=== PATIENT | male | born 1955 | race Caucasian/White ===

== ENCOUNTER → 2017-06-20 13:15 | Outpatient (POV) | payer BC, SELFPAY | PROVIDERS: Family Provider Internal Medicine Adolescent Medicine; PCP Internal Medicine Adolescent Medicine; Visit Provider Internal Medicine | DX: Z00.00 Encounter for general adult medical examination without abnormal findings (principal) ==

== ENCOUNTER → 2017-06-26 16:44 | Outpatient (CLI) | payer BC, SELFPAY ==
--- NOTE | 2017-06-26 | XR_ITS ---
XR chest 2V HISTORY: Cough, COPD ORDERING PHYSICIAN: Brady Mart MD PATIENT AGE: 61 years COMPARISON: 07/07/2016 FINDINGS: Unremarkable cardiovascular structures. There is hyperinflation with attenuation of the peripheral pulmonary vessels consistent with COPD. No lobar consolidation or collapse. Minimal density noted over the anterior aspect of the right fourth rib which may be due to summation artifact may be confirmed with follow-up. No acute bony anomalies. IMPRESSION: COPD. Faint nodular opacity overlies the right fourth rib anteriorly and could be due to summation artifact, scarring, or even developing nodule. Follow-up radiograph in 4-6 weeks recommended to confirm stability in this patient with COPD. If this persists, CT may be needed for further evaluation.
== END ==
PROVIDERS: PCP Internal Medicine Adolescent Medicine; Visit Provider Internal Medicine Adolescent Medicine
DX: J44.9 Chronic obstructive pulmonary disease, unspecified (principal); J43.1 Panlobular emphysema
CPT/HCPCS: 71046

== ENCOUNTER → 2017-06-27 12:15 | Outpatient (CLI) | payer BC, SELFPAY | PROVIDERS: PCP Internal Medicine Adolescent Medicine; Visit Provider Internal Medicine Adolescent Medicine | DX: J44.9 Chronic obstructive pulmonary disease, unspecified (principal) | CPT/HCPCS: 87070; 87077; 87184; 87205 ==

== ENCOUNTER → 2017-07-10 13:48 | Outpatient (CLI) | payer BC, SELFPAY ==
[2017-07-10 14:12] LABS: Blood Urea Nitrogen 12 mg/dL (7-18); Creatinine,Serum 0.94 mg/dL (0.70-1.30); Estimated Glomerular Filt Rate 82 ml/min (>60); GFR (African American) 99 ML/MIN (>60)
--- NOTE | 2017-07-10 14:18 | CT_ITS ---
CT chest w con Ordering Physician: Brady Mart MD COMPARISON :CT chest 04/23 and 07/11/2013 HISTORY: Lung nodule follow-up Patient Age: 61 years: Male panlobar emphysema, chest wall pain, [place] TECHNIQUE: Helical CT scanning through the chest following 75 cc Isovue-370. Axial Sagittal coronal reconstructions on CT workstation. COMPARISON is made to previous CT chest 07/11/2012 & Previous CT chest from10/17/2016 FINDINGS Again prominent hyperexpansion and pronounced emphysematous changes areobserved. centrilobar emphysema more evident towards the upper lung mckeon.Bleb formation is again most evident about the superior mediastinum and towards apices . The bleb just to the left the mediastinum measuring 3.2 cm diameter withslightly smaller area just to the right of the superior mediastinum. . Borderline/Minor thickening central airways bilaterally. May reflect mild chronic bronchitis feature Right lung. There is a small patchy area of likely inflammatory infiltrate at RUL. No findings in this area on previous October 2016 study,. This located immediate superior to the major fissure at right midlung. Up to 15 mm. It does appear to be a most likely patchy area of low density infiltrate but given its slightly stellate character would suggest a follow-up CT chest in 3-4 months to to exclude more significant process given a slightly radiating character. Again there are no findings here either in retrospect on the previous study The subtle small triangular density RUL axial image 25 is stable or less evident. Most compatible with minor scarring.. Not of concern. Small 3 mm calcified granuloma posterior right lower lobe axial image 51 Stable. Trace linear scarring and atelectasis at the posterior sulcus bilateral2-. Not of concern Mediastinum. No hilar no mediastinal adenopathy or mass. . Great vessels appear satisfactory. Aorta normal caliber. Chest wall unremarkable. Upper abdomen. No significant findings otherwise noted. T-spine. No lesion. No compression fractures mild degenerative changes IMPRESSION . 1. Small patchy area of density midlung at RUL just above major fissure. This small 15 mm low-density area more likely reflecting patchy area inflammatory infiltrate. No previous findings here on previous CT. However would recommend a follow-up CT chest in 3-4 months to further evaluate and confirm stability given its overall appearance. 2. Remainder the chest appears stable since 2017 & [address] chest. No significant new findings. COPD,Hyperexpansion , with prominent emphysematous changes again noted. . 3. No mediastinal mass or adenopathy.
--- NOTE | 2017-07-10 14:25 | HMH.ITSHM ---
JAIDEN,OMI,VAL,INCRUSE,CYMBALTA,CYCLOBENZAPEN,ROPINIROLE
== END ==
PROVIDERS: Family Provider Internal Medicine Adolescent Medicine; PCP Internal Medicine Adolescent Medicine; Visit Provider Internal Medicine Adolescent Medicine
DX: R91.1 Solitary pulmonary nodule (principal)
CPT/HCPCS: 36415; 71260; 82565; 84520; Q9967

== ENCOUNTER 2017-07-14 07:26 | Day surgery (SDC) | payer BC, SELFPAY ==
[2017-07-14] VITALS (18 sets, daily range): BP systolic 73–130; BP diastolic 38–83; PULSE 54–71; RESP 16–18; TEMP 36.4–37; O2SAT 90–98; BMI 32.5
--- NOTE | 2017-07-14 | IR_ITS ---
CARDIAC CATHETERIZATION DATE OF CATHETERIZATION:07/14/2017 12:47 PM PROCEDURES: 1. Right heart catheterization 2. Left heart catheterization 3. Left ventriculogram 4. Selective coronary angiogram INDICATION FOR TEST: 1. Pulmonary hypertension 2. Numerous risk factors for coronary disease 3. Highly abnormal EKG 4. Angina pectoris last 3 and 4 5. Severe COPD Informed consent was obtained prior to the procedure. COMPLICATIONS: None ESTIMATED BLOOD LOSS: Less than 10 ml. TECHNIQUE: One percent lidocaine was used to anesthetize the right anterior aspect of the right wrist. The right radial artery was accessed via the Seldinger technique and a 6 [place] hydrophilic sheath was placed in the right radial artery. Following this one percent lidocaine was used to anesthetize the right anterior aspect of the right neck. The right internal jugular vein was accessed via the Seldinger technique and a 7 [place] sheath was placed in the right internal jugular vein. Following this an arterial cocktail was administered using heparin verapamil and nitroglycerin into the right radial sheath. A trap catheter was used to perform left heart catheterization left ventriculogram and selective coronary angiography while a [place] catheter was used to perform right heart catheterization. Saturations were obtained in the pulmonary artery and right atrium. At the end of the procedure the arterial sheath was removed good hemostasis was achieved using TR banding patient was transferred to the postop holding area in stable condition for venous sheath removal ANGIOGRAPHIC RESULTS: 1. The left main artery normal 2. The left anterior descending artery has proximal mild luminal irregularities 10% stenosis with mid vessel 20% stenoses 3. The circumflex artery is codominant and normal 4. The right coronary artery is codominant and has a proximal concentric 30-40% stenosis with mid vessel 20% stenoses 5. The QUIÑONEZ ventriculogram reveals normal 65% 6. The left ventricular end-diastolic pressure 5 mmHg HEMODYNAMICS: Right atrial pressure is 2 mm Hg. Pulmonary arterial pressure is 17/5 mm Hg. Pulmonary artery occlusion pressure is 5 mm Hg. SATURATIONS: RA is 82 %. PA is 83 %. IMPRESSION: 1. Mild to moderate nonflow limiting coronary artery disease as described above 2. Normal ejection fraction 3. Normal left ventricular end-diastolic pressure 4. Normal intracardiopulmonary filling pressures PLAN: 1. 2.
[2017-07-14 08:02] LABS: Basophils # 0.1 K/mm3 (0-0.2); Basophils % 1.7 % (0.1-2.0); Eosinophils # 0.2 K/mm3 (0.0-0.4); Eosinophils % 3.2 % (0.1-12.0); Hematocrit 47.3 % (42.0-52.0); Hemoglobin 15.5 g/dL (14.1-18.0); Lymphocytes # 2.6 K/mm3 (0.7-4.5); Lymphocytes % 39.8 K/mm3 (10-50); Mean Corpuscular HGB Conc 32.7 g/dL (31.8-35.4); Mean Corpuscular Hemoglobin 33.6 pg (27.0-31.2); Mean Corpuscular Volume 102.5 fl (80-94); Mean Platelet Volume 7.9 fl (7.4-10.4); Monocytes # 0.5 K/mm3 (0.1-1.0); Monocytes % 8.1 % (1.7-9.3); Neutrophils # 3.1 K/mm3 (1.8-7.8); Neutrophils % 47.2 % (37.0-80.0); Platelet Count 207 K/mm3 (142-424); Red Blood Count 4.61 M/mm3 (4.60-6.20); Red Cell Distribution Width 13.6 % (11.5-17.5); White Blood Count 6.5 K/mm3 (4.8-10.8)
[2017-07-14 08:18] LABS: Anion Gap 8.9 mEq/L (5-15); Blood Urea Nitrogen 13 mg/dL (7-18); Carbon Dioxide 31 mmol/L (21.0-32.0); Chloride 103 mmol/L (98-107); Creatinine Clearance Estimated 114 mL/min (0-300); Creatinine,Serum 0.93 mg/dL (0.70-1.30); Estimated Glomerular Filt Rate 83 ml/min (>60); GFR (African American) 101 ML/MIN (>60); Glucose 111 mg/dL (74-106); Sodium 139 mmol/L (136-145)
[2017-07-14 08:19] LABS: Potassium 3.9 mmoL/L (3.5-5.1)
[2017-07-14 14:21] LABS: CATHL Arterial O2 SAT 83 % (90-100); CATHL Venous O2 SAT 82 % (75-80)
== END 2017-07-14 15:49 | disposition home or self-care (01) ==
LOC: CATHLAB 07:27
PROVIDERS: Family Provider Internal Medicine Adolescent Medicine; PCP Internal Medicine Adolescent Medicine; Visit Provider Internal Medicine
DX: R07.9 Chest pain, unspecified; I27.20 Pulmonary hypertension, unspecified; I27.81 Cor pulmonale (chronic); J44.9 Chronic obstructive pulmonary disease, unspecified; I25.2 Old myocardial infarction; Z72.0 Tobacco use; Z79.899 Other long term (current) drug therapy
CPT/HCPCS: 36245; 75625; 75716; 80048; 82810; 85025; 93459; 93460; 99152; C1725; C1769; C1894; J1644; Q9967

== ENCOUNTER → 2017-07-26 17:00 | Outpatient (CLI) | payer BC, SELFPAY | PROVIDERS: Visit Provider Internal Medicine Adolescent Medicine | DX: J44.1 Chronic obstructive pulmonary disease with (acute) exacerbation (principal) | CPT/HCPCS: 87070; 87205 ==

== ENCOUNTER → 2017-10-16 12:56 | Outpatient (CLI) | payer BC, SELFPAY ==
[2017-10-16 14:45] LABS: Blood Urea Nitrogen 15 mg/dL (7-18); Creatinine,Serum 0.92 mg/dL (0.70-1.30); Estimated Glomerular Filt Rate 84 ml/min (>60); GFR (African American) 102 ML/MIN (>60)
== END ==
PROVIDERS: Visit Provider Internal Medicine Adolescent Medicine
DX: R91.1 Solitary pulmonary nodule (principal)
CPT/HCPCS: 36415; 82565; 84520

== ENCOUNTER → 2017-10-18 10:14 | Outpatient (CLI) | payer BC, SELFPAY ==
--- NOTE | 2017-10-18 10:19 | CT_ITS ---
CT chest w con HISTORY: Follow-up lung nodule ITS.REASON: LUNG NODULE ORDERING PHYSICIAN: Brady Mart MD PATIENT AGE: 61 years COMPARISON: 07/10/2017 TECHNIQUE: Axial images obtained following the administration of 75 mL of Isovue 370 . Sagittal, and coronal reformatted images are also generated and reviewed. All CT scans at the facility use one or more dose reduction, viz: automated exposure control; ma/kV adjustment per patient size (including targeted exams where dose is matched to indication; i.e. head); or iterative reconstruction technique. FINDINGS: Centrilobular and paraseptal emphysema once again noted with biapical blebs and scattered bulla. Previously noted patchy area of increased density in the right upper lobe has nearly resolved with only small parenchymal opacity noted at this region and may be due to some minimal postinflammatory fibrotic change. Scattered fibrotic changes are present at 4. No suspicious nodules. No infiltrates or effusions. No mediastinal or hilar mass. No evidence of aortic aneurysm or central pulmonary embolus. Coronary artery calcifications are present. Upper abdominal images are unremarkable. Degenerative changes present in the thoracic and lumbar spine. IMPRESSION: 1. Centrilobular and paraseptal emphysema with scattered bulla. 2. Interval improvement in parenchymal opacification in the right upper lobe 3. Coronary artery disease
== END ==
PROVIDERS: Family Provider Internal Medicine Adolescent Medicine; PCP Internal Medicine Adolescent Medicine; Visit Provider Internal Medicine Adolescent Medicine
DX: R91.1 Solitary pulmonary nodule (principal)
CPT/HCPCS: 71260; Q9967

== ENCOUNTER → 2018-04-12 12:27 | Outpatient (CLI) | payer BC, SELFPAY ==
[2018-04-12 13:40] LABS: Basophils # 0.1 K/mm3 (0-0.2); Eosinophils # 0.3 K/mm3 (0.0-0.4); Hematocrit 48.2 % (42.0-52.0); Hemoglobin 15.3 g/dL (14.1-18.0); Lymphocytes # 2.5 K/mm3 (0.7-4.5); Lymphocytes % 23.1 % (10-50); Mean Corpuscular HGB Conc 31.7 g/dL (31.8-35.4); Mean Platelet Volume 7.7 fl (7.4-10.4); Monocytes # 0.6 K/mm3 (0.1-1.0); Monocytes % 5.6 % (1.7-9.3); Neutrophils # 7.2 K/mm3 (1.8-7.8); Neutrophils % 67.4 % (37.0-80.0); Platelet Count 209 K/mm3 (142-424); Red Blood Count 4.63 M/mm3 (4.60-6.20); Red Cell Distribution Width 13.6 % (11.5-17.5); White Blood Count 10.6 K/mm3 (4.8-10.8)
[2018-04-12 15:30] LABS: Alanine Aminotransferase 20 U/L (12-78); Albumin Level 3.9 gm/dL (3.4-5.0); Albumin/Globulin Ratio 1.2 (1.1-1.8); Alkaline Phosphatase 53 U/L (46-116); Anion Gap 14.6 mEq/L (5-15); Aspartate Amino Transferase 15 U/L (15-37); Bilirubin,Total 0.5 mg/dL (0.2-1.0); Blood Urea Nitrogen 15 mg/dL (7-18); Calcium 9.2 mg/dL (8.5-10.1); Carbon Dioxide 33 mmol/L (21.0-32.0); Chloride 98 mmol/L (98-107); Chol/HDL Ratio 3.4 (1-3.5); Cholesterol 210 mg/dL (140-200); Creatinine,Serum 0.82 mg/dL (0.70-1.30); Estimated Glomerular Filt Rate 96 ml/min (>60); GFR (African American) 116 ML/MIN (>60); Globulin 3.3 gm/dl (1.3-3.2); Glucose 90 mg/dL (74-106); HDL Cholesterol 61 mg/dL (27-67); LDL Cholesterol 133 mg/dL (0-130); Potassium 4.6 mmoL/L (3.5-5.1); Sodium 141 mmol/L (136-145); Thyroid Stimulating Hormone 1.63 uIU/ml (0.358-3.740); Total Protein,Serum 7.2 gm/dL (6.4-8.2); Triglycerides 81 mg/dL (30-200); VLDL Cholesterol 16 mg/dL (0-40)
== END ==
PROVIDERS: Visit Provider Nurse Practitioner Family
DX: I25.10 Atherosclerotic heart disease of native coronary artery without angina pectoris (principal); R00.0 Tachycardia, unspecified; J43.1 Panlobular emphysema
CPT/HCPCS: 36415; 80053; 80061; 84443; 85025

== ENCOUNTER → 2018-06-20 15:35 | Outpatient (CLI) | payer BC, SELFPAY ==
--- NOTE | 2018-06-20 15:41 | XR_ITS ---
XR hip LT 2-3V w/pelvis HISTORY: ITS.REASON: LEFT HIP PAIN, ORDERING PHYSICIAN: Raya Fitzgerald PATIENT AGE: 62 years COMPARISON: None FINDINGS: There are mild osteoarthritic changes of the left hip. No fracture or dislocation. No lytic or blastic change.. An AP view the pelvis also shows mild osteoarthritis of the right hip. Vascular calcifications are present. IMPRESSION: Mild osteoarthritis of the hips
--- NOTE | 2018-06-20 15:41 | XR_ITS ---
EXAM: XR lumbar spine min 4V HISTORY: ITS.REASON: FALL LEFT SIDED LOW BACK PAIN W/SCIATICA ORDERING PHYSICIAN: Raya Fitzgerald PATIENT AGE: 62 years FINDINGS: Minimal lumbar curvature convex right. No fracture or dislocation. There is mild degenerative disc disease in the lower thoracic spine and T12-L1. There slight decrease in height anteriorly at T12 and L1 but does appear to be chronic compared to a prior CT scan. No acute fracture or dislocation. Small endplate osteophytes are present at L3, L4, and L5. There are mild facet arthritic changes at L5-S1. IMPRESSION: Degenerative change, no acute finding. No significant change from 02/22/2008
== END ==
PROVIDERS: PCP Nurse Practitioner Family; Visit Provider Nurse Practitioner Family
DX: M25.552 Pain in left hip (principal); M25.352 Other instability, left hip; M54.42 Lumbago with sciatica, left side; W19.XXXA Unspecified fall, initial encounter
CPT/HCPCS: 72110; 73502

== ENCOUNTER → 2019-04-08 14:43 | Outpatient (CLI) | payer BC, SELFPAY ==
[2019-04-08 15:36] LABS: Basophils # 0.1 K/mm3 (0-0.2); Basophils % 1.3 % (0.1-2.0); Eosinophils # 0.1 K/mm3 (0.0-0.4); Eosinophils % 2.2 % (0.1-12.0); Hematocrit 50.4 % (42.0-52.0); Hemoglobin 17.2 g/dL (14.1-18.0); Lymphocytes # 1.1 K/mm3 (0.7-4.5); Lymphocytes % 21.3 % (10-50); Mean Corpuscular HGB Conc 34.1 g/dL (31.8-35.4); Mean Corpuscular Hemoglobin 33.5 pg (27.0-31.2); Mean Corpuscular Volume 98.2 fl (80-94); Mean Platelet Volume 7.8 fl (7.4-10.4); Monocytes # 0.4 K/mm3 (0.1-1.0); Monocytes % 8.3 % (1.7-9.3); Neutrophils # 3.3 K/mm3 (1.8-7.8); Neutrophils % 66.9 % (37.0-80.0); Platelet Count 216 K/mm3 (142-424); Red Blood Count 5.13 M/mm3 (4.60-6.20); Red Cell Distribution Width 12.4 % (11.5-17.5)
[2019-04-08 16:25] LABS: Alanine Aminotransferase 17 U/L (12-78); Albumin Level 4.1 gm/dL (3.4-5.0); Albumin/Globulin Ratio 1.5 (1.1-1.8); Alkaline Phosphatase 69 U/L (46-116); Anion Gap 13.9 mEq/L (5-15); Aspartate Amino Transferase 26 U/L (15-37); Bilirubin,Total 0.7 mg/dL (0.2-1.0); Blood Urea Nitrogen 10 mg/dL (7-18); Calcium 9.2 mg/dL (8.5-10.1); Carbon Dioxide 29 mmol/L (21.0-32.0); Chloride 86 mmol/L (98-107); Chol/HDL Ratio 2.6 (1-3.5); Cholesterol 194 mg/dL (140-200); Creatinine,Serum 0.83 mg/dL (0.70-1.30); Estimated Glomerular Filt Rate 94 ml/min (>60); GFR (African American) 114 ML/MIN (>60); Globulin 2.7 gm/dl (1.3-3.2); Glucose 102 mg/dL (74-106); HDL Cholesterol 74 mg/dL (27-67); LDL Cholesterol 104 mg/dL (0-130); Potassium 4.9 mmoL/L (3.5-5.1); Sodium 124 mmol/L (136-145); Thyroid Stimulating Hormone 0.66 uIU/ml (0.358-3.740); Total Protein,Serum 6.8 gm/dL (6.4-8.2); Triglycerides 82 mg/dL (30-200); VLDL Cholesterol 16 mg/dL (0-40)
== END ==
PROVIDERS: PCP Nurse Practitioner Family; Visit Provider Nurse Practitioner Family
DX: Z00.00 Encounter for general adult medical examination without abnormal findings (principal); J44.9 Chronic obstructive pulmonary disease, unspecified; E04.1 Nontoxic single thyroid nodule
CPT/HCPCS: 36415; 80053; 80061; 84443; 85025

== ENCOUNTER → 2019-04-12 14:27 | Outpatient (CLI) | payer BC, SELFPAY ==
--- NOTE | 2019-04-12 14:29 | CT_ITS ---
PROCEDURE: CT LUNG SCREENING CLINICAL INDICATION: CURRENT TOBACCO USE Sixty pack-year smoking history, asymptomatic for lung cancer COMPARISON: CHESTW CT chest w con from 10/18/2017 TECHNIQUE: The exam was performed on a GE Light Speed [address] scanner using 2.90 mGy CTDI. A low dose helical CT CHEST was performed on a multi-detector scanner. All CT scans at the facility use one or more dose reduction, viz: automated exposure control, ma/kV adjustment per patient size (including targeted exams where dose is matched to indication, i.e. head), or iterative reconstruction technique. The LDCT was performed in a facility that meets the criteria for the screening program. Data regarding this exam was submitted to ACR which is an approved registry. The order for this exam indicates that it came as a result of a lung cancer screening counseling shard decision-making visit that included all the elements required of such a visit including smoking cessation. The radiologist interpreting this exam meets the CMS criteria for the LDCT lung cancer screening program. The exam is reported using the Lung-RADS classification scale and reported to the ACR registry. NOTE: This study was performed for the specific purposes of lung cancer screening and is not an alternative to diagnostic chest CT. RADIATION DOSE: CTDI vol(CT dose Index-volume) = 2.90mG DLP (Dose Length Product) = 117.24 mGcm FINDINGS: Centrilobular and paraseptal emphysema with scattered areas of scarring. There is a mass in the right middle lobe which measures 3.9 cm AP, 3.7 cm transverse, and 5.2 cm cephalad caudad highly suspicious for neoplasm. This is within the medial aspect of the right middle lobe and is adjacent to the right heart border/right atrium. Subcarinal adenopathy is noted. No definite contralateral adenopathy. Suggest diagnostic CT chest with contrast for further evaluation. Coronary artery calcifications are noted. No other suspicious nodules are apparent. There is some mild thickening of the pericardium inferiorly and there is some mild postobstructive pneumonitis in the right middle lobe inferiorly. IMPRESSION: Lung rads category 4B suspicious Recommend diagnostic CT of the chest with contrast for further evaluation. Mediastinal adenopathy is suspected Suggest pulmonology consult. This lesion should be accessible for biopsy by bronchoscopy. There is mild pericardial thickening and there are coronary artery calcifications suggesting coronary artery disease Dictated by: Eusebio Ledbetter MD 04/13/2019 07:51 Electronically signed by Eusebio Ledbetter MD in [place] 04/19/2019 04:28
== END ==
PROVIDERS: PCP Nurse Practitioner Family; Visit Provider Internal Medicine Adolescent Medicine
DX: Z87.891 Personal history of nicotine dependence (principal); Z12.2 Encounter for screening for malignant neoplasm of respiratory organs

== ENCOUNTER → 2019-05-06 14:36 | Outpatient (CLI) | payer BC, SELFPAY ==
--- NOTE | 2019-05-06 14:41 | XR_ITS ---
PROCEDURE: XR SHOULDER RT MIN 2V CLINICAL INDICATION: RT SHOULDER PAIN COMPARISON: CHESTW CT chest w con from 10/18/2017 FINDINGS: The clavicle is intact and the AC joint appears normal. The humeral head and glenoid are normal and no soft tissue calcifications. IMPRESSION: No acute findings. Dictated by: Dr. Philippe Salgado MD 05/06/2019 15:[address] Philippe Salgado MD in [facility] 05/06/2019 15:52
--- NOTE | 2019-05-06 14:41 | CT_ITS ---
PROCEDURE: CT CHEST W CON CLINICAL HISTORY: ABNORMAL FINDING on low-dose screening chest exam COMPARISON: CHESTW CT chest w con from 10/18/2017 TECHNIQUE: Axial images obtained with sagittal and coronal reformats. All CT scans at the facility use one or more dose reduction, viz: automated exposure control, ma/kV adjustment per patient size (including targeted exams where dose is matched to indication, i.e. head), or iterative reconstruction technique. FINDINGS: The lung mckeon are hyperexpanded with moderate emphysematous changes noted. There is conglomerate somewhat heterogenic appearing mass in the superior mediastinum pretracheal space at the level of the aortic arch measuring 4.2 x 3.2 cm on the axial image by 6.3 cm superior inferior dimension on the coronal sequence and this likely is a conglomeration of abnormal adenopathy. Similar appearing heterogenic density extends into the subcarinal location and likely the same etiology. There is a large somewhat heterogenic appearing mass medial segment of the right middle lobe measuring 4.6 x 10.0 cm on the axial image by 4.9 cm superior inferior dimension on the coronal and sagittal sequence. These findings represent bronchogenic carcinoma until proven otherwise. There is minimal diffuse postobstructive pneumonitis in the lateral segment of the right middle lobe. The remainder of the lung mckeon are clear. There is no pleural fluid. Scans in the upper abdomen show both adrenal IMPRESSION: Large right middle lobe mass with superior mediastinal, right paratracheal and subcarinal conglomerate adenopathy and this is bronchogenic carcinoma until proven otherwise. Dictated by: Dr. Philippe Salgado MD 05/06/2019 16:[address] Philippe Salgado MD in [facility] 05/06/2019 16:02
[2019-05-06 15:19] LABS: Blood Urea Nitrogen 13 mg/dL (7-18); Creatinine,Serum 0.79 mg/dL (0.70-1.30); Estimated Glomerular Filt Rate 100 ml/min (>60); GFR (African American) 121 ML/MIN (>60)
== END ==
PROVIDERS: PCP Internal Medicine Adolescent Medicine; Visit Provider Internal Medicine Adolescent Medicine
DX: R93.89 Abnormal findings on diagnostic imaging of other specified body structures (principal); M25.511 Pain in right shoulder
CPT/HCPCS: 36415; 71260; 73030; 82565; 84520; Q9967

== ENCOUNTER → 2019-05-24 09:58 | Outpatient (CLI) | payer BC, SELFPAY ==
[2019-05-24 10:19] LABS: Blood Urea Nitrogen 24 mg/dL (7-18); Creatinine,Serum 1.05 mg/dL (0.70-1.30); Estimated Glomerular Filt Rate 72 ml/min (>60); GFR (African American) 87 ML/MIN (>60)
--- NOTE | 2019-05-24 10:24 | MR_ITS ---
PROCEDURE: MR HEAD/BRAIN WO/W CON CLINICAL INDICATION: MEDIASTINAL LYMPHADENOPATHY/LUNG MASS Lung mass, lung cancer COMPARISON: No exams were available for comparison TECHNIQUE: Routine multiplanar multi echo sequences are performed without and with gadolinium enhancement. FINDINGS: No midline shift, mass effect, intracranial hemorrhage, or hydrocephalus. There is generalized atrophy with a few scattered T2 white matter hyperintensities nonspecific but may be related to ischemic gliotic foci. The cerebellopontine angles, cerebellum and brainstem have an unremarkable. There are dilated perivascular spaces within the basal ganglia. The no enhancing lesions are evident. The pituitary, corpus callosum, optic chiasm, and craniocervical junction have an unremarkable appearance. Mucosal thickening involves the ethmoid sinuses and there are air-fluid levels in the maxillary sinuses. No mastoid effusion. IMPRESSION: 1. No evidence of intracranial metastasis. 2. No acute intracranial findings. 3. Paranasal sinus disease Dictated by: Eusebio Ledbetter MD 05/25/2019 10:15 Electronically signed by Eusebio Ledbetter MD in [place] 05/25/2019 10:15
== END ==
PROVIDERS: PCP Internal Medicine Adolescent Medicine; Visit Provider Thoracic Surgery (Cardiothoracic Vascular Surgery)
DX: R59.0 Localized enlarged lymph nodes (principal)
CPT/HCPCS: 36415; 70553; 82565; 84520; A9576

== ENCOUNTER → 2019-06-18 08:15 | Outpatient (CLI) | payer BC, SELFPAY ==
--- NOTE | 2019-06-18 08:29 | MR_ITS ---
PROCEDURE: MR LUMBAR SPINE WO/W CON CLINICAL INDICATION: SMALL CELL CARCINOMA, MALIGNANT NEOPLASM OF UNSPECIFIED PART Abnormal PET scan COMPARISON: MR HEAD/BRAIN WO/W CON from 05/24/2019 TECHNIQUE: Routine multiplanar multi echo sequences are performed without and with gadolinium enhancement. FINDINGS: History of small cell carcinoma with abnormal PET scan. The PET scan is not available for review. There is normal alignment. The spinal cord ends at the L2 level. T12-L1: Unremarkable. L1-L2: Unremarkable. L2-L3: There is a round lesion within the mid and superior aspect of the L3 vertebral body measuring 1.6 cm showing slight increase in T2 signal but without obvious enhancement. The margins are somewhat obscured. This is suspicious for metastatic focus. This is confined to the vertebral body. Facet and ligamentum hypertrophic changes are present at that level. L3-L4: Minimal bulging disc with facet ligamentum hypertrophy with mild bilateral lateral recess and foraminal narrowing. There is an ill-defined lesion involving the posterior aspect of the L4 vertebral body on the left and extends into the left pedicle of L4. This is hypointense on T1 becoming slightly hyperintense on T2 without significant enhancement. The lesion measures 2.4 cm AP and 2.2 cm transverse. The the no epidural involvement is suspected. There is mild expansion of the L4 pedicle on the left. L4-5: Degenerative disc disease with bulging disc which is somewhat eccentric toward the left along with facet and ligamentum hypertrophy with left lateral recess and foraminal narrowing. L5-S1: Degenerate disc disease with bulging disc which is also eccentric toward the left with broad-based left foraminal disc protrusion causing some impingement upon the left S1 nerve root and causing moderate narrowing of the left L5-S1 foramen. Incidental note is made of a small right pleural effusion IMPRESSION: 1. Lesions are present involving the L3 and L4 vertebral body as described above. These are consistent with metastatic foci. The L4 lesion involves the left pedicle. 2. L4-5: Degenerative disc disease with bulging disc which is somewhat eccentric toward the left along with facet and ligamentum hypertrophy with left lateral recess and foraminal narrowing. 3. L5-S1: Degenerate disc disease with bulging disc which is also eccentric toward the left with broad-based left foraminal disc protrusion causing some impingement upon the left S1 nerve root and causing moderate narrowing of the left L5-S1 foramen. Dictated by: Eusebio Ledbetter MD 06/19/2019 08:03 Electronically signed by Eusebio Ledbetter MD in [facility] 06/19/2019 08:03
[2019-06-18 08:35] LABS: Blood Urea Nitrogen 16 mg/dL (7-18); Creatinine,Serum 0.88 mg/dL (0.70-1.30); Estimated Glomerular Filt Rate 88 ml/min (>60); GFR (African American) 107 ML/MIN (>60)
== END ==
PROVIDERS: PCP Internal Medicine Adolescent Medicine; Visit Provider Internal Medicine Hematology & Oncology
DX: C34.90 Malignant neoplasm of unspecified part of unspecified bronchus or lung (principal)
CPT/HCPCS: 36415; 72158; 76376; 82565; 84520; A9576

== ENCOUNTER → 2019-06-26 15:38 | Outpatient (CLI) | payer BC, SELFPAY ==
--- NOTE | 2019-06-26 15:44 | XR_ITS ---
PROCEDURE: XR CHEST 2V CLINICAL HISTORY: POSTOBSTRUCTIVE PNEUMONIA COMPARISON: CXR CHEST(2 VIEWS-NOT PORTABLE) from 01/29/2013 CXR CHEST(2 VIEWS-NOT PORTABLE) from 07/07/2016 CXR2V XR chest 2V from 06/26/2017 CT CHEST W CON from 05/06/2019 FINDINGS: The cardiomediastinal silhouette and pulmonary vascularity are within normal limits. There is a moderate amount of new infiltrate in the medial segment of the right middle lobe. Pneumonia should be considered 1st. Follow-up to confirm complete clearing is recommended to ensure benign etiology. Remaining lungs are emphysematous but clear. Blunting of the costophrenic angles may be associated with the hyperinflation. No acute bony abnormalities. IMPRESSION: New moderate right middle lobe infiltrate. Follow-up to complete clearing is recommended to ensure benign etiology. Dictated by: Yusuf Acuna 06/26/2019 17:20 Electronically signed by Yusuf Acuna in [facility] 06/26/2019 17:20
[2019-06-26 16:44] LABS: Basophils % 0.9 % (0.1-2.0); Eosinophils % 0.9 % (0.1-12.0); Hematocrit 42.7 % (42.0-52.0); Hemoglobin 14.5 g/dL (14.1-18.0); Lymphocytes # 0.8 K/mm3 (0.7-4.5); Lymphocytes % 22.1 % (10-50); Mean Corpuscular Hemoglobin 33.1 pg (27.0-31.2); Mean Corpuscular Volume 97.2 fl (80-94); Mean Platelet Volume 7.8 fl (7.4-10.4); Neutrophils # 2.9 K/mm3 (1.8-7.8); Neutrophils % 75.1 % (37.0-80.0); Platelet Count 78 K/mm3 (142-424); Red Blood Count 4.39 M/mm3 (4.60-6.20); Red Cell Distribution Width 13.6 % (11.5-17.5); White Blood Count 3.8 K/mm3 (4.8-10.8)
== END ==
PROVIDERS: PCP Internal Medicine Adolescent Medicine; Visit Provider Internal Medicine Adolescent Medicine
DX: J18.9 Pneumonia, unspecified organism (principal); C34.90 Malignant neoplasm of unspecified part of unspecified bronchus or lung
CPT/HCPCS: 36415; 71046; 85025

== ENCOUNTER → 2019-12-25 12:33 | Outpatient (CLI) | payer BC, SELFPAY ==
--- NOTE | 2019-12-25 13:26 | XR_ITS ---
PROCEDURE: XR CHEST PORTABLE CLINICAL HISTORY: COVID, CHEST WALL PAIN COMPARISON: CR CXR CHEST(2 VIEWS-NOT PORTABLE) from 07/07/2016 CR CXR2V XR chest 2V from 06/26/[address] CHEST W CON from 05/06/2019 CR XR CHEST 2V from 06/26/2019 FINDINGS: The cardiomediastinal silhouette and pulmonary vascularity are within normal limits. The lungs are clear without infiltrates, suspicious nodules, or pleural effusions. There is hyperinflation which could be due to small airway disease such as COPD or bronchitis. Asthma is also consideration. IMPRESSION: Hyperinflation otherwise negative Dictated by: Eusebio Ledbetter MD 12/25/2019 14:21 Eusebio Ledbetter MD in [place] 12/25/2019 14:21
[2019-12-25 13:29] LABS: MANUAL DIFFERENTIAL MANUAL DIFFERENTIAL (MANUAL DIFF)
[2019-12-25 13:36] LABS: Basophils % 0.1 % (0.1-2.0); Eosinophils % 0.3 % (0.1-12.0); Hematocrit 33.6 % (42.0-52.0); Hemoglobin 11.1 g/dL (14.1-18.0); Lymphocytes # 1.4 K/mm3 (0.7-4.5); Lymphocytes % 14.2 % (10-50); Mean Corpuscular HGB Conc 33.1 g/dL (31.8-35.4); Mean Corpuscular Volume 111.9 fl (80-94); Mean Platelet Volume 7.7 fl (7.4-10.4); Monocytes # 0.5 K/mm3 (0.1-1.0); Monocytes % 4.8 % (1.7-9.3); Neutrophils # 7.7 K/mm3 (1.8-7.8); Neutrophils % 80.5 % (37.0-80.0); Platelet Count 142 K/mm3 (142-424); Red Blood Count 3.01 M/mm3 (4.60-6.20); Red Cell Distribution Width 18.7 % (11.5-17.5); White Blood Count 9.5 K/mm3 (4.8-10.8)
[2019-12-25 14:18] LABS: Alanine Aminotransferase 34 U/L (12-78); Albumin Level 4.1 g/dl (3.5-5.0); Alkaline Phosphatase 51 U/L (38-126); Aspartate Amino Transferase 26 U/L (17-59); Bilirubin,Total 0.4 mg/dl (0.2-1.3); Blood Urea Nitrogen 26 mg/dl (9-20); Calcium 9.6 mg/dl (8.4-10.2); Chloride 96 mmol/L (98-107); Estimated Glomerular Filt Rate 68 ml/min (>60); GFR (African American) 82 ML/MIN (>60); Globulin 2.1 g/dL (1.3-3.2); Glucose 125 mg/dl (74-100); Potassium 4.8 mmoL/L (3.5-5.1); Sodium 137 mmol/L (136-145); Total Protein,Serum 6.2 g/dl (6.3-8.2)
[2019-12-25 14:25] LABS: Carbon Dioxide 37 mmol/L (22.0-30.0)
[2019-12-25 14:26] LABS: Anion Gap 8.8 mEq/L (5-15)
[2019-12-25 16:38] LABS: Lymphocytes % 6 % (10-50); Monocytes % 2 % (2-9); Neutrophils % 91 % (42-76); Platelet Estimate Normal; RBC Morphology Normal; Total Cells Counted 100
== END ==
PROVIDERS: Internal Medicine Hematology & Oncology; PCP Internal Medicine Adolescent Medicine; Visit Provider Nurse Practitioner
DX: Z03.818 Encounter for observation for suspected exposure to other biological agents ruled out (principal)
CPT/HCPCS: 36415; 71045; 80053; 85007; 85014; 85018; 85048; 85049; U0003

== ENCOUNTER 2020-02-27 10:59 | Emergency (ER) | payer BC, SELFPAY ==
[2020-02-27 10:59] VITALS: BP 132/83; PULSE 105; RESP 22; TEMP 37.1; O2SAT 94; BMI 17.9
--- NOTE | 2020-02-27 11:14 | XR_ITS ---
PROCEDURE: XR CHEST PORTABLE CLINICAL HISTORY: WEAKNESS COMPARISON: CR CXR2V XR chest 2V from 06/26/[address] CHEST W CON from 05/06/2019 CR XR CHEST 2V from 06/26/2019 CR XR CHEST PORTABLE from 12/25/2019 FINDINGS: The cardiomediastinal silhouette and pulmonary vascularity are within normal limits. Consolidation is present in the right lower lobe and right midlung consistent with pneumonia. There is elevated right hemidiaphragm with small right effusion. Left lung is clear. No acute bony abnormalities. IMPRESSION: Right-sided pneumonia with right pleural effusion. Dictated by: Eusebio Ledbetter MD 02/27/2020 14:14 Eusebio Ledbetter MD in [facility] 02/27/2020 14:14
--- NOTE | 2020-02-27 11:15 | CT_ITS ---
PROCEDURE: CT HEAD/BRAIN WO CON CLINICAL INDICATION: ams Altered mental status, altered level of consciousness, confusion, disorientation COMPARISON: MR MR HEAD/BRAIN WO/W CON from 05/24/2019 TECHNIQUE: Axial images obtained. All CT scans at the facility use one or more dose reduction, viz: automated exposure control, ma/kV adjustment per patient size (including targeted exams where dose is matched to indication, i.e. head), or iterative reconstruction technique. FINDINGS: No midline shift, mass effect, intracranial hemorrhage, hydrocephalus, or extra-axial fluid collection is evident. Suspect an incidental small hemangioma in the calvarium in the right parietal bone. No mastoid effusion. No sinus air-fluid level. IMPRESSION: No acute intracranial finding Dictated by: Eusebio Ledbetter MD 02/27/2020 12:43 Eusebio Ledbetter MD in [facility] 02/27/2020 12:43
[2020-02-27 11:19] VITALS: BP 126/84; PULSE 98; O2SAT 97
[2020-02-27 11:20] LABS: Basophils % 0.3 % (0.1-2.0); Eosinophils % 0.3 % (0.1-12.0); Hematocrit 37.4 % (42.0-52.0); Hemoglobin 11.8 g/dL (14.1-18.0); Lymphocytes # 1.2 K/mm3 (0.7-4.5); Lymphocytes % 9.4 % (10-50); Mean Corpuscular HGB Conc 31.6 g/dL (31.8-35.4); Mean Corpuscular Hemoglobin 33.5 pg (27.0-31.2); Mean Platelet Volume 7.7 fl (7.4-10.4); Monocytes # 0.3 K/mm3 (0.1-1.0); Monocytes % 2.4 % (1.7-9.3); Neutrophils # 10.6 K/mm3 (1.8-7.8); Neutrophils % 87.5 % (37.0-80.0); Platelet Count 330 K/mm3 (142-424); Red Blood Count 3.52 M/mm3 (4.60-6.20); Red Cell Distribution Width 15.2 % (11.5-17.5); White Blood Count 12.2 K/mm3 (4.8-10.8)
--- NOTE | 2020-02-27 11:21 | HMH.EDWEAK ---
ED Disposition Clinical Impression: COPD with exacerbation, Dehydration Right lower lobe pneumonia Qualifiers: Pneumonia type: due to unspecified organism Qualified Code(s): J18.9 - Pneumonia, unspecified organism Disposition: Home, Self-Care Condition on Discharge: Good Instructions: DI for Pneumonia -- Adult Prescriptions: Doxycycline Hyclate [Doxycycline 100mg Capsule] 100 mg PO Q12 10 Days #20 cap Transmission Status: Pending to [facility] Referrals: PCP,No [Non-Staff] - Marcus Quinn MD [Staff Physician] - - Critical Care Critical Care Time: No Attestation: On , the high probability of a clinically significant, sudden or life threatening deterioration of the following system(s) required my full and direct attention, intervention and personal management. The time I documented below is in addition to time spent performing reported procedures but includes the following listed in this critical care notation. Medical Decision Making - Medical Records Medical records reviewed: Yes: I reviewed the patient's medical records. - Cain Inquiry Pt receiving controlled substance: No Vital Signs: 02/27/20 10:59 02/27/20 11:19 02/27/20 12:55 Temperature 98.8 F Temperature Source Oral Pulse Rate [Radial] 105 H 98 H 102 H Respiratory Rate 22 Blood Pressure [Right Arm] 132/83 126/84 138/80 Blood Pressure Mean [Right Arm] 99 98 99 Blood Pressure Source [Right Arm] Automatic Cuff Automatic Cuff Blood Pressure Position [Right Arm] Sitting Sitting Sitting 02 Sat by Pulse Oximetry 94 L 97 92 L Oxygen Delivery Method Nasal Cannula Nasal Cannula Nasal Cannula Oxygen Flow Rate (LPM) 3 3 3 02/27/20 13:00 Temperature Temperature Source Pulse Rate [Radial] 97 H Respiratory Rate 17 Blood Pressure [Right Arm] 138/80 Blood Pressure Mean [Right Arm] 99 Blood Pressure Source [Right Arm] Blood Pressure Position [Right Arm] 02 Sat by Pulse Oximetry 94 L Oxygen Delivery Method Oxygen Flow Rate (LPM) - Lab Data Lab Results 02/27/20 10:45: WBC 12.2 H, RBC 3.52 L, Hgb 11.8 L, Hct 37.4 L, MCV 106.0 H, MCH 33.5 H, MCHC 31.6 L, RDW 15.2, Plt Count 330, MPV 7.7, Neut % (Auto) 87.5 H, Lymph % (Auto) 9.4 L, Coffee % (Auto) 2.4, Eos % (Auto) 0.3, Baso % (Auto) 0.3, Neut # (Auto) 10.6 H, Lymph # (Auto) 1.2, Coffee # (Auto) 0.3, Eos # (Auto) 0.0, Baso # (Auto) 0.0, Total Counted 100, Neutrophils % (Manual) 84 H, Lymphocytes % (Manual) 15, Monocytes % (Manual) 1 L, Platelet Estimate Normal, Anisocytosis 1+, Macrocytosis 1+ 02/27/20 10:45: Sodium 137, Potassium 4.6, Chloride 98, Carbon Dioxide 34 H, Anion Gap 9.6, BUN 11, Creatinine 0.80, Estimated Creat Clear 63, Estimated GFR 98, Est GFR ( Amer) 119, Glucose 128 H, Calcium 9.1, Total Bilirubin 0.4, AST 42, ALT 22, Alkaline Phosphatase 77, Total Protein 6.6, Albumin 3.6, Globulin 3.0, Albumin/Globulin Ratio 1.2 02/27/20 11:22: Specimen Source Left radial, O2 % 28%, ABG pH 7.38, ABG pCO2 49.0 H, ABG pO2 69.5 L, ABG HCO3 28.3 H, ABG Total CO2 29.8 H, ABG O2 Saturation 93, ABG Base Excess 3.1 H, Eusebio Test Acceptable 02/27/20 12:55: Urine Color [place], Urine Appearance Sl cloudy, Urine pH 5.0, Ur Specific [place] >= 1.030, Urine Protein Trace, Urine Glucose (UA) Negative, Urine Ketones 2+, Urine Blood Negative, Urine Nitrate Positive, Urine Bilirubin 1+ A, Urine Urobilinogen 1.0, Ur Leukocyte Esterase Negative, Urine RBC 5-10, Urine WBC 3-5, Ur Squamous Epith Cells 3-5, Urine Bacteria 1+ Result diagrams: 02/27/20 10:45 02/27/20 10:45 Orders (Tests/Meds): ED MEDICATIONS Generic Name Dose Route Start Last Admin Trade Name Freq PRN Reason Stop Dose Admin Albuterol/Ipratropium 3 ml 02/27/20 13:23 Albuterol/Ipratropium 3 Ml Neb IH 02/27/20 13:24 ONCE ONE Discontinued Medications Generic Name Dose Route Start Last Admin Trade Name Freq PRN Reason Stop Dose Admin Sodium Chloride 1,000 mls @ 999 mls/hr 02/27/20 11:15 02/27/20 11:28 Sod
[2020-02-27 11:23] LABS: MANUAL DIFFERENTIAL MANUAL DIFFERENTIAL (MANUAL DIFF)
[2020-02-27 11:24] LABS: Alanine Aminotransferase 22 U/L (12-78); Albumin Level 3.6 g/dl (3.5-5.0); Albumin/Globulin Ratio 1.2 (1.1-1.8); Alkaline Phosphatase 77 U/L (38-126); Anion Gap 9.6 mEq/L (5-15); Aspartate Amino Transferase 42 U/L (17-59); Bilirubin,Total 0.4 mg/dl (0.2-1.3); Blood Urea Nitrogen 11 mg/dl (9-20); Calcium 9.1 mg/dl (8.4-10.2); Carbon Dioxide 34 mmol/L (22.0-30.0); Chloride 98 mmol/L (98-107); Creatinine Clearance Estimated 63 mL/min (50-200); Estimated Glomerular Filt Rate 98 ml/min (>60); GFR (African American) 119 ML/MIN (>60); Glucose 128 mg/dl (74-100); Potassium 4.6 mmoL/L (3.5-5.1); Sodium 137 mmol/L (136-145); Total Protein,Serum 6.6 g/dl (6.3-8.2)
--- NOTE | 2020-02-27 11:31 | ECG_ITS ---
APPROVED REPORT Exam: Resting ECG HR:91 bpm ECG Measurements Heart Rate 91 AXES MS 144 P 73 QRSd 80 QRS 116 QT 380 T 74 QTc 467 Conclusion Normal sinus rhythm Bi atrial abnormality Right axis deviation Abnormal ECG Electronically signed by : Brady Mart, 02/28/2020 14:34:07
[2020-02-27 11:33] LABS: Anisocytosis 1+; Lymphocytes % 15 % (10-50); Macrocytosis 1+; Monocytes % 1 % (2-9); Neutrophils % 84 % (42-76); Platelet Estimate Normal; Total Cells Counted 100
--- NOTE | 2020-02-27 12:01 | PC.NURSE ---
Pt to rad
[2020-02-27 12:46] LABS: ABG Base Excess 3.1 mmol/L (-2.4-2.3); ABG HCO3 28.3 mmhg (22.0-26.0); ABG Oxygen Saturation 93 % (90-100); ABG PH 7.38 mmol/L (7.35-7.45); ABG PO2 69.5 mmhg (80-100); ABG TCO2 29.8 mmhg (23-27)
[2020-02-27 12:47] LABS: Allen's Test Acceptable; Oxygen 28% %; Source Left Radial
[2020-02-27 12:55] VITALS: BP 138/80; PULSE 102; O2SAT 92
[2020-02-27 12:59] LABS: Microscopic, Urine URINE MICROSCOPIC (MICROSCOPIC)
[2020-02-27 13:00] VITALS: BP 138/80; PULSE 97; RESP 17; O2SAT 94
[2020-02-27 13:07] LABS: Appearance,Urine SL CLOUDY (Clear); Blood, Urine Negative (Negative); Color,Urine ORANGE (Yellow); Glucose,Urine (UA) Negative (Negative); Ketones,Urine 2+ (Negative); Leukocyte Esterase,Urine Negative (Negative); Nitrate,Urine POSITIVE (Negative); Protein,Urine TRACE (Negative); Specific Gravity, Urine >= 1.030 (1.005-1.030)
[2020-02-27 13:10] LABS: Bilirubin,Urine 1+ (Negative)
[2020-02-27 13:18] LABS: Bacteria,Urine 1+ /lpf
[2020-02-27 13:34] VITALS: BP 134/80; PULSE 95; O2SAT 94
--- NOTE | 2020-02-27 14:00 | PC.NURSE ---
SKIN TEARS TO RT AND LT ELBOW CLEANED AND PSO DSD APPLIED
[2020-02-27 14:32] VITALS: BP 132/74; PULSE 98; RESP 22; TEMP 36.6; O2SAT 95
== END 2020-02-27 14:35 | disposition home or self-care (01) ==
PROVIDERS: Emergency Provider Emergency Medicine; PCP Internal Medicine Adolescent Medicine
DX: J44.1 Chronic obstructive pulmonary disease with (acute) exacerbation (principal); E86.0 Dehydration; J18.9 Pneumonia, unspecified organism; C34.90 Malignant neoplasm of unspecified part of unspecified bronchus or lung; Z79.899 Other long term (current) drug therapy
CPT/HCPCS: 70450; 71045; 80053; 81001; 82803; 85007; 85025; 93005; 96365; 99284

== ENCOUNTER 2020-04-19 12:06 | Emergency (ER) | payer BC, SELFPAY ==
[2020-04-19] VITALS (7 sets, daily range): BP systolic 107–151; BP diastolic 78–91; PULSE 108–117; RESP 18; TEMP 36.6; O2SAT 92–96; BMI 19.5
--- NOTE | 2020-04-19 12:08 | HMH.EDGENADL ---
ED Disposition Clinical Impression: Lung cancer Qualifiers: Laterality: right Lung location: unspecified part of lung Qualified Code(s): C34.91 - Malignant neoplasm of unspecified part of right bronchus or lung Disposition: Home Health Service Condition on Discharge: Fair Additional Instructions: Continue medications as prescribed. Hospice should be reaching out to you after 8 AM tomorrow morning to schedule a home visit to coordinate medical home. If any issues or concerns prior to that time please have patient brought back to the emergency department. Referrals: Brady Mart MD [Primary Care Provider] - - Critical Care Critical Care Time: No Attestation: On , the high probability of a clinically significant, sudden or life threatening deterioration of the following system(s) required my full and direct attention, intervention and personal management. The time I documented below is in addition to time spent performing reported procedures but includes the following listed in this critical care notation. Medical Decision Making - Medical Records Medical records reviewed: Yes: I reviewed the patient's medical records. - Cain Inquiry Pt receiving controlled substance: No Vital Signs: 04/19/20 12:06 04/19/20 13:49 04/19/20 14:42 Temperature 97.9 F Temperature Source Oral Pulse Rate [Right Radial] 117 H 110 H 114 H Respiratory Rate 18 Blood Pressure [Right Arm] 117/81 151/83 H 136/78 Blood Pressure Mean [Right Arm] 93 105 97 Blood Pressure Source [Right Arm] Automatic Cuff Automatic Cuff Automatic Cuff Blood Pressure Position [Right Arm] Sitting Sitting Sitting 02 Sat by Pulse Oximetry 92 L 96 93 L Oxygen Delivery Method Nasal Cannula Nasal Cannula Oxygen Flow Rate (LPM) 2 2 04/19/20 15:56 Temperature Temperature Source Pulse Rate [Right Radial] 108 H Respiratory Rate Blood Pressure [Right Arm] 146/91 H Blood Pressure Mean [Right Arm] 109 Blood Pressure Source [Right Arm] Automatic Cuff Blood Pressure Position [Right Arm] Sitting 02 Sat by Pulse Oximetry 94 L Oxygen Delivery Method Nasal Cannula Oxygen Flow Rate (LPM) 3 - Lab Data Lab Results 04/19/20 12:10: WBC 13.3 H, RBC 3.66 L, Hgb 11.8 L, Hct 36.1 L, MCV 98.7 H, MCH 32.3 H, MCHC 32.7, RDW 15.3, Plt Count 295, MPV 7.5, Neut % (Auto) 85.7 H, Lymph % (Auto) 8.3 L, [place] % (Auto) 5.8, Eos % (Auto) 0.1, Baso % (Auto) 0.1, Neut # (Auto) 11.4 H, Lymph # (Auto) 1.1, [place] # (Auto) 0.8, Eos # (Auto) 0.0, Baso # (Auto) 0.0, Total Counted 100, Neutrophils % (Manual) 90 H, Lymphocytes % (Manual) 6 L, Monocytes % (Manual) 4, Platelet Estimate Normal, RBC Morphology Normal 04/19/20 12:10: Sodium 132 L, Potassium 4.9, Chloride 96 L, Carbon Dioxide 30, Anion Gap 10.9, BUN 23 H, Creatinine 1.10, Estimated Creat Clear 63, Estimated GFR 68, Est GFR ( Amer) 82, Glucose 130 H, Calcium 9.4, Total Bilirubin 0.6, AST 58, ALT 27, Alkaline Phosphatase 80, Troponin I 0.02, Total Protein 6.6, Albumin 3.7, Globulin 2.9, Albumin/Globulin Ratio 1.3 04/19/20 12:10: Lactate 1.8 04/19/20 12:10: SARS-CoV-2 IgG Ab (Rapid) Negative, SARS-CoV-2 IgM Ab (Rapid) Negative 04/19/20 13:15: Urine Color Yellow, Urine Appearance Clear, Urine pH 5.5, Ur Specific [place] 1.025, Urine Protein Negative, Urine Glucose (UA) Negative, Urine Ketones 1+, Urine Blood 1+, Urine Nitrate Negative, Urine Bilirubin Negative, Urine Urobilinogen 0.2, Ur Leukocyte Esterase Negative, Urine RBC 3-5, Urine WBC Occasional, Ur Squamous Epith Cells 5-10, Urine Bacteria None Result diagrams: 04/19/20 12:10 04/19/20 12:10 Orders (Tests/Meds): ED MEDICATIONS Discontinued Medications Generic Name Dose Route Start Last Admin Trade Name Freq PRN Reason Stop Dose Admin Albuterol/Ipratropium 3 ml 04/19/20 15:50 Albuterol/Ipratropium 3 Ml Neb IH 04/19/20 15:51 ONCE ONE Lactated Ringer's 1,000 mls @ 999 mls/hr 04/19/20 12:45 04/19/20 13:45 Lactated Ringer's 1000 Ml Bag IV 04/19/
[2020-04-19 12:25] LABS: Basophils % 0.1 % (0.1-2.0); Eosinophils % 0.1 % (0.1-12.0); Hematocrit 36.1 % (42.0-52.0); Hemoglobin 11.8 g/dL (14.1-18.0); Lymphocytes # 1.1 K/mm3 (0.7-4.5); Lymphocytes % 8.3 % (10-50); Mean Corpuscular HGB Conc 32.7 g/dL (31.8-35.4); Mean Corpuscular Hemoglobin 32.3 pg (27.0-31.2); Mean Corpuscular Volume 98.7 fl (80-94); Mean Platelet Volume 7.5 fl (7.4-10.4); Monocytes # 0.8 K/mm3 (0.1-1.0); Monocytes % 5.8 % (1.7-9.3); Neutrophils # 11.4 K/mm3 (1.8-7.8); Neutrophils % 85.7 % (37.0-80.0); Platelet Count 295 K/mm3 (142-424); Red Blood Count 3.66 M/mm3 (4.60-6.20); Red Cell Distribution Width 15.3 % (11.5-17.5); White Blood Count 13.3 K/mm3 (4.8-10.8)
[2020-04-19 12:29] LABS: MANUAL DIFFERENTIAL MANUAL DIFFERENTIAL (MANUAL DIFF)
--- NOTE | 2020-04-19 12:30 | CT_ITS ---
PROCEDURE: CT HEAD/BRAIN WO CON CLINICAL INDICATION: fall, ams COMPARISON: No exams were available for comparison TECHNIQUE: Axial images obtained. All CT scans at the facility use one or more dose reduction, viz: automated exposure control, ma/kV adjustment per patient size (including targeted exams where dose is matched to indication, i.e. head), or iterative reconstruction technique. FINDINGS: No midline shift, mass effect, intracranial hemorrhage, hydrocephalus, or extra-axial fluid collection is evident. The cortical sulci are mildly prominent but normal for age.45 The calvarium has an unremarkable appearance. No mastoid effusion. No sinus air-fluid level. IMPRESSION: No acute intracranial finding Dictated by: Dr. Philippe Salgado MD 04/19/2020 13:14 Dr. Philippe Salgado MD in [facility] 04/19/2020 13:14
--- NOTE | 2020-04-19 12:30 | PC.NURSE ---
ER MD states CT head with and without contrast radiology states waiting on labs for contrast.
[2020-04-19 12:32] LABS: Chloride 96 mmol/L (98-107); Potassium 4.9 mmoL/L (3.5-5.1); Sodium 132 mmol/L (136-145)
--- NOTE | 2020-04-19 12:32 | PC.NURSE ---
BALA CARBAJAL speaking with pts at this time
[2020-04-19 12:34] LABS: Alanine Aminotransferase 27 U/L (12-78); Aspartate Amino Transferase 58 U/L (17-59); Blood Urea Nitrogen 23 mg/dl (9-20); Creatinine Clearance Estimated 63 mL/min (50-200); Estimated Glomerular Filt Rate 68 ml/min (>60); GFR (African American) 82 ML/MIN (>60)
[2020-04-19 12:35] LABS: Albumin Level 3.7 g/dl (3.5-5.0); Albumin/Globulin Ratio 1.3 (1.1-1.8); Alkaline Phosphatase 80 U/L (38-126); Anion Gap 10.9 mEq/L (5-15); Bilirubin,Total 0.6 mg/dl (0.2-1.3); Calcium 9.4 mg/dl (8.4-10.2); Carbon Dioxide 30 mmol/L (22.0-30.0); Globulin 2.9 g/dL (1.3-3.2); Glucose 130 mg/dl (74-100); Lactic Acid 1.8 mmol/L (0.7-2.1); Total Protein,Serum 6.6 g/dl (6.3-8.2)
[2020-04-19 12:38] LABS: Lymphocytes % 6 % (10-50); Monocytes % 4 % (2-9); Neutrophils % 90 % (42-76); Platelet Estimate Normal; RBC Morphology Normal; Total Cells Counted 100
--- NOTE | 2020-04-19 12:38 | PC.NURSE ---
pt to CT
[2020-04-19 12:47] LABS: Troponin I 0.02 ng/ml (0.00-0.034)
--- NOTE | 2020-04-19 13:06 | PC.NURSE ---
pt return from CT
[2020-04-19 13:22] LABS: Coronavirus 19 IgG Antibody Negative (Negative); Coronavirus 19 IgM Antibody Negative (Negative)
[2020-04-19 13:25] LABS: Microscopic, Urine URINE MICROSCOPIC (MICROSCOPIC)
[2020-04-19 13:26] LABS: Appearance,Urine CLEAR (Clear); Blood, Urine 1+ (Negative); Color,Urine YELLOW (Yellow); Glucose,Urine (UA) Negative (Negative); Ketones,Urine 1+ (Negative); Leukocyte Esterase,Urine Negative (Negative); Nitrate,Urine Negative (Negative); PH,Urine 5.5 (5.0-8.5); Protein,Urine Negative (Negative); Specific Gravity, Urine 1.025 (1.005-1.030); Urobilinogen,Urine 0.2 EU/dl (0.2)
[2020-04-19 13:31] LABS: Bilirubin,Urine Negative (Negative)
[2020-04-19 13:33] LABS: WBC,Urine Occasional #/hpf (0-3)
--- NOTE | 2020-04-19 13:48 | XR_ITS ---
PROCEDURE: XR CHEST PORTABLE CLINICAL HISTORY: altered mental status COMPARISON: CT CT CHEST W CON from 05/06/2019 CR XR CHEST 2V from 06/26/2019 CR XR CHEST PORTABLE from 12/25/2019 CR XR CHEST PORTABLE from 02/27/2020 FINDINGS: Severe far advanced emphysematous changes are noted with marked hyperexpansion lung mckeon and depression of the hemidiaphragms. The right lower lobe infiltrate seen on the previous chest film 02/27/2020 has resolved however there now is ill-defined pneumonic infiltrate right perihilar region and right upper lobe. There is a small right pleural effusion. The left lung field remains clear. Cardiac size is normal. IMPRESSION: Marked COPD with right perihilar and right upper lobe bronchopneumonia with small right pleural effusion Dictated by: Dr. Philippe Salgado MD 04/19/2020 15:07 Dr. Philippe Salgado MD in [facility] 04/19/2020 15:07
--- NOTE | 2020-04-19 15:57 | PC.NURSE ---
Attempted to contacted [phone] per hospice to get intake demographic for pt for hospice. Forward to voicemail at this time.
[2020-04-19 16:06] LABS: Troponin I 0.02 ng/ml (0.00-0.034)
--- NOTE | 2020-04-19 17:48 | PC.NURSE ---
ER speaking with Kylah (risk control director hospice nurse) again at this time r/t Room air sat 85-90% no distress noted.
--- NOTE | 2020-04-19 17:59 | PC.NURSE ---
ER states after speaking with hospice staff rickey, hospice will evaluate pt for admission to hospice when they go to his home in the morning and can provide pt will oxygen at home the same day as needed.
--- NOTE | 2020-04-19 18:38 | PC.NURSE ---
pt contacted at this time to notify her that pt is being transported home per [facility]
== END 2020-04-19 18:50 | disposition home or self-care (01) ==
PROVIDERS: Emergency Provider Emergency Medicine; PCP Internal Medicine Adolescent Medicine
DX: R41.82 Altered mental status, unspecified (principal); C34.91 Malignant neoplasm of unspecified part of right bronchus or lung; Z01.84 Encounter for antibody response examination; F17.210 Nicotine dependence, cigarettes, uncomplicated; Z99.81 Dependence on supplemental oxygen; Z79.899 Other long term (current) drug therapy
CPT/HCPCS: 36415; 70450; 71045; 80053; 81001; 83605; 84484; 85007; 85025; 86328; 87040; 96365; 99284